=== PATIENT | female | born 1965 | race Two or more races ===

== ENCOUNTER 2023-03-29 19:16 | Emergency (ER) | payer MEDICARE, OTHER ==
[~2023-03-29] VITALS: Ht 162.6 cm; Wt 59.0 kg
--- NOTE | 2023-03-29 22:41 | NUR ---
PATIENT BIBS W/ COMPLAINT OF GEN MUSCLE PAIN. TOOK GABAPENTIN; NO RELIEF. AAOX4, PLACED IN BED, VITALS CHECKED.
[2023-03-29] MEDS ORDERED: CYCLOBENZAPRINE 10 MG TABLET PO ONE (23:00)
[2023-03-29] MEDS ORDERED: CYCLOBENZAPRINE 10 MG TABLET ONE (23:02)
--- NOTE | 2023-03-30 00:06 | NUR ---
XR DONE AT BEDSIDE
[2023-03-30] MEDS ORDERED: CYCL5TAB PO (02:14)
[2023-03-30] MEDS ORDERED: NAPR-1009 PO (02:14)
[2023-03-30] MEDS ORDERED: PERM60CR4 TP (02:14)
--- NOTE | 2023-03-30 04:38 | NUR ---
Patient discharged to home in stable condition. Written and verbal after care instructions given. Patient verbalizes understanding of instruction.
[2023-03-30 04:39] VITALS: BP 121/72
== END 2023-03-30 04:40 | disposition home or self-care (01) ==
LOC: ER 19:18
DX: S29.012A Strain of muscle and tendon of back wall of thorax, initial encounter (principal); F20.9 Schizophrenia, unspecified; F31.9 Bipolar disorder, unspecified; Z90.49 Acquired absence of other specified parts of digestive tract; Z90.710 Acquired absence of both cervix and uterus; Z59.00 Homelessness unspecified; X58.XXXA Exposure to other specified factors, initial encounter; Y93.89 Activity, other specified; Y92.488 Other paved roadways as the place of occurrence of the external cause; Y99.8 Other external cause status
CPT/HCPCS: 72070-TC